=== PATIENT | male | born 1940 | race Caucasian/White ===

== ENCOUNTER 2017-06-23 17:09 | Emergency (ER) | payer MEDICARE ==
[2017-06-23 18:44] VITALS: BP 118/78
--- NOTE | 2017-06-23 18:55 | UC ---
General HPI - HPI Summary HPI Summary: pt tripped and fell at the end of last month injuring his R ribs. yesterday, he leaned over his center console and felt a pop in his R ribs and is c/o pain since. no sob or blood in sputum. no abdominal pain. - History of Current Complaint Hx Obtained From: Patient, Family/Raw Sampler Onset/Duration: Sudden Onset Timing: Constant Pain Intensity: 8 Aggravating: movement Alleviating: left over tylenol with codeine Associated Signs & Symptoms: Negative: Abdominal Pain, Fever, Hemoptysis, SOB <Mariah Morin - Last Filed: 06/23/17 19:42> <Jacki Vargas - Last Filed: 06/23/17 19:49> - History of Current Complaint Chief Complaint: UCUpperExtremity Stated Complaint: RIGHT RIB PAIN Time Seen by Provider: 06/23/17 18:43 - Allergy/Home Medications Allergies/Adverse Reactions: Allergies Allergy/AdvReac Type Severity Reaction Status Date / Time MS Codeine [Codeine] Allergy Itching Verified 06/23/17 18:45 MS Meloxicam [From Mobic] Allergy See Comment Verified 06/23/17 18:45 ivp dye Allergy Hives Uncoded 06/23/17 18:45 Home Medications: Home Medications Apixaban* [Eliquis*] 5 mg PO BID 06/23/17 [History Confirmed 06/23/17] Furosemide 80 mg PO DAILY 06/23/17 [History Confirmed 06/23/17] Sevelamer TAB* [Renvela TAB*] 800 mg PO TID 06/23/17 [History Confirmed 06/23/17 ] traZODone TAB* [Desyrel TAB*] 150 mg PO BEDTIME 06/23/17 [History Confirmed ] PMH/Surg Hx/FS Hx/Imm Hx Respiratory History: COPD GI/ History: Renal Disease - Surgical History Surgical History: Yes Surgery Procedure, Year, and Place: T&A. ileojejunal bipass - Social History Occupation: Retired Lives: With Family Alcohol Use: None Substance Use Type: None Smoking Status (MU): Former Smoker Type: Cigarettes Amount Used/How Often: 1 ppd Length of Time of Smoking/Using Tobacco: 30+ yrs When Did the Patient Quit Smoking/Using Tobacco: 2009 <Mariah Morin - Last Filed: 06/23/17 19:42> Review of Systems Constitutional: Negative Skin: Negative Eyes: Negative ENT: Negative Respiratory: Negative Cardiovascular: Negative Gastrointestinal: Negative Genitourinary: Negative Motor: Negative Neurovascular: Negative Musculoskeletal: Edema - BLE's, chronic, Other: - R rib pain Neurological: Negative Psychological: Negative All Other Systems Reviewed And Are Negative: Yes <Mariah Morin - Last Filed: 06/23/17 19:42> Physical Exam Triage Information Reviewed: Yes Appearance: Well-Appearing Vital Signs: Initial Vital Signs Temp 98.5 F 06/23/17 18:32 Pulse 79 06/23/17 18:32 Resp 19 06/23/17 18:32 BP 118/78 06/23/17 18:32 Pulse Ox 95 06/23/17 18:32 Vital Signs Reviewed: Yes Eyes: Positive: Conjunctiva Clear ENT: Positive: Normal ENT inspection Neck: Positive: Supple, Nontender, No Lymphadenopathy Respiratory: Positive: Lungs clear, No respiratory distress, Decreased breath sounds, Other: - R anterior-lateral rib tenderness but no instability or crepitations. Also, no bruising or deformity. Cardiovascular: Positive: RRR, No Murmur Abdomen Description: Positive: Nontender, No Organomegaly, Soft, Other: - post op scar. Negative: Distended, Guarding Bowel Sounds: Positive: Present Musculoskeletal: Positive: Edema @ - BLE's(chronic/unchanged per pt)., Other: - dialysis shunt LUE Neurological: Positive: Alert Psychological: Positive: Age Appropriate Behavior Skin Exam: Normal <Mariah Morin - Last Filed: 06/23/17 19:42> Vital Signs: Initial Vital Signs Temp 98.5 F 06/23/17 18:32 Pulse 79 06/23/17 18:32 Resp 06/23/17 18:32 BP 118/78 06/23/17 18:32 Pulse Ox 95 06/23/17 18:32 <Jacki Vargas - Last Filed: 06/23/17 19:49> Diagnostics - Radiology No standard instances Xray Interpretation: No Acute Changes Radiology Interpretation Completed By: Radiologist <Mariah Morin - Last Filed: 06/23/17 19:42> Course/Dx - Course Course Of Treatment: offered tylenol here, pt declined. non toxic, no acute abdomen. no fx or ptx on xrays. pt requesting narcotic pain medication. given his hx dialysis and nad/fx on xray, will defer that medication to Dr Calderon who knows the pt's hx and renal function. he has dialysis tomorrow. - Differential Dx - Multi-Symptom Provider Diagnoses: R Chest wall pain <Mariah Morin - Last Filed: 06/23/17 19:42> Discharge - Sign-Out/Discharge Documenting (check all that apply): Discharge/Admit/Transfer - Billing Disposition and Condition Condition: STABLE Disposition: HOME <Mariah Morin - Last Filed: 06/23/17 19:42> - Billing Disposition and Condition Condition: STABLE Disposition: HOME <Jacki Vargas - Last Filed: 06/23/17 19:49> - Discharge Plan Condition: Stable Disposition: HOME Patient Education Materials: Chest Wall Pain (ED) Referrals: Kvng RAMIREZ,Denys [Primary Care Provider] - 1 Day Attestation Statement User Type: Provider - I was available for consult. This patient was seen by the [facility]. The patient was not presented to, seen by, or examined by me. -Sherrie <Jacki Vargas - Last Filed: 06/23/17 19:49>
--- NOTE | 2017-06-23 19:12 | RAD ---
INDICATION: Fall 1 month ago. Right rib pain COMPARISON: Chest x-ray November 16, 2013 TECHNIQUE: Multiple views of the ribs were obtained. FINDINGS: Bones: There is no evidence of acute rib fracture. LUNGS: The lungs are clear. There is no pneumothorax. Pleural spaces: There is no evidence of hemothorax. Other: None IMPRESSION: NO ACUTE RIB FRACTURE.
== END 2017-06-23 19:59 | disposition home or self-care (01) ==
LOC: UCCORT 17:09
DX: R07.89 Other chest pain (principal); Z87.891 Personal history of nicotine dependence
CPT/HCPCS: 99201; G0463